=== PATIENT | female | born 1980 | race African-American/Black ===

== ENCOUNTER 2024-10-22 00:05 | Emergency (ER) | payer MEDICAID ==
[~2024-10-22] VITALS: Ht 172.7 cm; Wt 73.0 kg
[2024-10-22 00:08] VITALS: O2SAT 100
[2024-10-22] MEDS: SODIUM CHLORIDE 0.9% 1,000 ML IV ONE (00:51)
[2024-10-22] MEDS: ACETAMINOPHEN 1000MG/100ML 100 ML IV ONE (00:51)
[2024-10-22 01:10] LABS: EOSINOPHILS % 2.1 % (0.0-5.0); HEMATOCRIT. 41.7 % (36.0-48.0); HEMOGLOBIN. 13.8 g/dL (12.0-16.0); LYMPHOCYTES % 47.6 % (20.0-50.0); MEAN CORPUSCULAR HEMOGLOBIN 28.8 pg (28.0-32.0); MEAN CORPUSCULAR HGB CONC 33.2 g/dL (31.0-37.0); MEAN CORPUSCULAR VOLUME 86.6 fL (81.0-99.0); MEAN PLATELET VOLUME 7.3 fl (7.4-10.4); MONOCYTES % 2.3 % (2.0-8.0); PLATELET 349 x1000/uL (130-400); RED BLOOD CELL COUNT 4.81 mill/uL (4.2-5.4); RED CELL DISTRIBUTION WIDTH 13.7 % (11.6-14.6); WHITE BLOOD COUNT 7.4 x1000/uL (4.5-11.0)
[2024-10-22 01:16] LABS: CHLORIDE 109 mEq/L (98-107); POTASSIUM 4.2 mEq/L (3.5-5.1); SODIUM 139 mEq/L (136-145)
[2024-10-22 01:17] LABS: CALCIUM 9.9 mg/dL (8.7-10.4); CARBON DIOXIDE 20 mEq/L (21-32)
[2024-10-22 01:19] LABS: HCG SCREEN NEGATIVE
[2024-10-22 01:22] LABS: CREATININE 1.1 mg/dL (0.6-1.0); GLUCOSE 91 mg/dL (70-105); UREA NITROGEN BLOOD 11 mg/dL (9-23)
[2024-10-22 01:23] LABS: ETHANOL BLOOD 169 mg/dL (<10)
[2024-10-22 01:24] LABS: ALANINE AMINOTRANSFERASE 21 IU/L (10-49); ASPARTATE AMINOTRANSFERASE 25 IU/L (<34); BILIRUBIN DIRECT 0.1 mg/dL (<=3.0); BILIRUBIN TOTAL 0.4 mg/dL (0.1-1.0); PROTEIN TOTAL 8.5 g/dL (6.0-8.3)
[2024-10-22 02:03] VITALS: O2SAT 99
[2024-10-22 02:23] LABS: INR 0.9; PROTHROMBIN TIME 10.5 sec (9.6-11.0)
[2024-10-22 02:26] VITALS: BP 119/71; PULSE 79; RESP 12
[2024-10-22] MEDS: KETOROLAC 15MG/ML VIAL IV ONE (02:26)
[2024-10-22] MEDS ORDERED: IBUP-2029 MT (02:34)
[2024-10-22] MEDS ORDERED: IOHEXOL-300 100 ML BOTTLE ONE (07:07)
== END 2024-10-22 02:50 | disposition home or self-care (01) ==
LOC: ER 00:15
DX: R10.9 Unspecified abdominal pain (principal); F10.129 Alcohol abuse with intoxication, unspecified; Z00.00 Encounter for general adult medical examination without abnormal findings; Y90.6 Blood alcohol level of 120-199 mg/100 ml
CPT/HCPCS: 80076; 80048; 80320; 84703; 83690; 85025; 85610; 36415; 74177; 96365; 96375; 99285; Q9967; J1885; J7030; Z7610 ×4; G0480; J0131